=== PATIENT | female | born 2000 ===

== ENCOUNTER 2024-09-06 15:07 | Inpatient (IN) | payer OTHER ==
[2024-09-06 16:12] LABS: MCH 25.0 PG (25.6-32.2); MCHC 32.3 g/dL (32.2-35.5); MCV 77.2 fL (79.4-94.8); RBC 5.05 M/uL (3.93-5.22)
[2024-09-06] MEDS ORDERED: MAGNESIUM HYDROXIDE/AL HYDROX 30 ML CUP PO PRN ×2 (16:15→22:15)
[2024-09-06] MEDS ORDERED: LACTATED RINGER'S 1,000 ML IV SCH (16:15)
[2024-09-06] MEDS ORDERED: LACTATED RINGER'S 1,000 ML IV PRN (16:15)
[2024-09-06] MEDS ORDERED: OXYTOCIN/0.9 % SODIUM CHLORIDE 30 UNITS/500 ML BAG IV SCH (16:15)
[2024-09-06] MEDS ORDERED: CALCIUM CARBONATE 500 MG CHEW PO PRN ×2 (16:15→22:15)
[2024-09-06 16:34] VITALS: BP 120/76
[2024-09-06 16:40] LABS: ABO O; ANTIBODY SCREEN NEGATIVE; RH POSITIVE
[2024-09-06] MEDS ORDERED: BUPIVACAINE HCL 0.25% 10 ML SDV INJ ONE ×2 (17:05→17:52)
[2024-09-06] MEDS ORDERED: fentaNYL citrate 100 MCG/2 ML VIAL ONE ×2 (17:05→17:53)
[2024-09-06] MEDS ORDERED: ROPIVACAINE 0.2% 200 ML BAG ONE (17:07)
[2024-09-06] MEDS ORDERED: ePHEDrine KIT FOR FBC IV ONE (18:33)
[2024-09-06 18:52] LABS: AMPHETAMINES, URINE NEGATIVE (NEGATIVE); BARBITURATES, URINE NEGATIVE (NEGATIVE); BENZODIAZEPINE, URINE NEGATIVE (NEGATIVE); CANNABINOID, URINE NEGATIVE (NEGATIVE); COCAINE, URINE NEGATIVE (NEGATIVE); ECSTASY, URINE NEGATIVE (NEGATIVE); FENTANYL, URINE NEGATIVE (NEGATIVE); METHADONE, URINE NEGATIVE (NEGATIVE); OPIATES, URINE NEGATIVE (NEGATIVE); OXYCODONE, URINE NEGATIVE (NEGATIVE); PHENCYCLIDINE, URINE NEGATIVE (NEGATIVE)
[2024-09-06] MEDS ORDERED: TERBUTALINE SULFATE 1 MG/ML AMP ONE (18:57)
[2024-09-06] MEDS ORDERED: SOD+POT BICARB/CITRIC ACID 2 EA TABLET.EFF ONE (18:57)
[2024-09-06] MEDS ORDERED: LIDOCAINE HCL 1% 30 ML SDV ONE (18:58)
--- NOTE | 2024-09-06 19:23 | PR ---
[facility] [address] [place], [place] [address] Signed Progress Notes IP Datetime Report Generated by CPN: 09/06/2024 19:23 PROGRESS NOTES: [id number] Impression: Normal Progression of Labor; Reassuring Heart Rate Procedures: Sterile Vag Exam Plan: Continue Present Management; Anticipate Vaginal Delivery Informed Consent Obtain: Vaginal Delivery VITAL SIGNS: [id number] Vital Signs: Reviewed; Within Normal Limits EXAM: [id number] Dilatation: 10.0 Effacement: 100 Station: -2 Contractions: q 2 min MEMBRANES: [id number] Comments: Pt seen and examined. Comfortable after epidural. Required 2nd attempt and had some post-epidural hypotension treated w/ ephedrine. Now improved. Pt now 10/100 w/ intact membranes. Would like to labor down. Discussed anticipated course of labor / delivery. All questions answered. FETUS A: [id number] FHR Baseline: 145 Variability: Moderate 6-25bpm Accelerations: 15X15 Decelerations: None FHR Category: Category I Presentation: Vertex Comments on Fetus A: No evidence of metabolic acidosis FETUS B: [id number] Signing Physician: Miranda Coats DO Copies: ~ *Electronically Signed* 09/06/241922 MIRANDA COATS ([place]) DO PATIENT NAME: MARÍA SLATERJIM PROGRESS NOTE DATE OF : 00 PHYSICIAN: MIRANDA COATS DO (JD) RPT #: [id number] REPORT IS CONFIDENTIAL AND NOT TO BE RELEASED WITHOUT AUTHORIZATION
[2024-09-06] MEDS ORDERED: LACTATED RINGER'S 2,000 ML IV ONE (19:45)
[2024-09-06] MEDS ORDERED: LACTATED RINGER'S 500 ML IV PRN (19:45)
[2024-09-06] MEDS ORDERED: ePHEDrine sulfate 5 MG/ML SYRINGE IV PRN (19:45)
[2024-09-06] MEDS ORDERED: MAGNESIUM HYDROXIDE 30 ML UDC PO PRN (22:15)
[2024-09-06] MEDS ORDERED: HYDROCODONE/ACETA 5/325 TAB PO PRN (22:15)
[2024-09-06] MEDS ORDERED: ACETAMINOPHEN 325 MG TAB PO PRN (22:15)
[2024-09-06] MEDS ORDERED: BENZOCAINE 60 ML AEROSOL TOP PRN (22:15)
[2024-09-06] MEDS ORDERED: OXYCODONE/APAP 5/325 TAB PO PRN (22:15)
[2024-09-06] MEDS ORDERED: IBUPROFEN 600 MG TAB PO PRN (22:15)
[2024-09-06] MEDS ORDERED: OXYTOCIN/0.9 % SODIUM CHLORIDE 500 ML IV SCH (22:15)
[2024-09-06] MEDS ORDERED: HYDROCORTISONE ACETATE 25 MG SUPP PR PRN (22:15)
[2024-09-06] MEDS ORDERED: WITCH HAZEL/GLYCERIN 1 EA PAD TOP PRN (22:15)
[2024-09-07 05:04] LABS: MCH 25.4 PG (25.6-32.2); MCHC 31.9 g/dL (32.2-35.5); MCV 79.6 fL (79.4-94.8); RBC 3.78 M/uL (3.93-5.22)
[2024-09-07] MEDS ORDERED: SENNOSIDES/DOCUSATE 1 EA TAB PO SCH (09:00)
--- NOTE | 2024-09-07 12:21 | PR ---
[facility] [address] [facility] [place] [place] [address] Signed PP Progress Notes Datetime Report Generated by CPN: 09/07/2024 12:21 SUBJECTIVE: [id number] Pain: Within Normal Limits Nausea/Vomiting: Denies Flatus: Yes Bowel Movement: No Vital Signs: [id number] Vital Signs: Reviewed; Within Normal Limits Cardiovascular: Normal Respiratory: Normal Abdomen/Uterus: Normal Lochia: Normal Vulva/Perineum: Not Done Breasts: Not Done CVA Tenderness: Normal Extremities: Normal Incision: Not Applicable Progress: Normal Exam Comments: Fundus firm U-2 nontender IMPRESSION/PLAN/PROCEDURES: [id number] Impression: Normal Progression Plan: Discharge Progress Notes: Pt seen and examined. Doing well. Ambulating, voiding, and tolerating full diet. Pain and lochia minimal. well. No fever/chills or other concerns. Strongly desires d/c home tonight. Reviewed d/c instructions and medications. All questions answered. Undecided on plans for pp contraception. Signing Physician: Miranda Coats DO Copies: ~ *Electronically Signed* 09/07/24 1221 MIRANDA COATS ([place]) DO PATIENT NAME: JIM HOOKS PROGRESS NOTE DATE OF : 00 PHYSICIAN: MIRANDA COATS) DO RPT #: [id number] REPORT IS CONFIDENTIAL AND NOT TO BE RELEASED WITHOUT AUTHORIZATION
== END 2024-09-07 22:15 | disposition home or self-care (01) | DRG 805 ==
LOC: FBCO 15:07 → FBC 15:26
PROVIDERS: ADMIT Obstetrics & Gynecology; ATTEND Obstetrics & Gynecology
PROC: 10E0XZZ Delivery of Products of Conception, External Approach (ICD-10-PCS; principal; 2024-09-06)
PROC: 0HQ9XZZ Repair Perineum Skin, External Approach (ICD-10-PCS; 2024-09-06)
PROC: 4A1HXCZ Monitoring of Products of Conception, Cardiac Rate, External Approach (ICD-10-PCS; 2024-09-06)
DX: O48.0 Post-term pregnancy (principal); O99.42 Diseases of the circulatory system complicating childbirth; Z37.0 Single live birth; D62 Acute posthemorrhagic anemia; Z3A.40 40 weeks gestation of pregnancy; O99.03 Anemia complicating the puerperium; Z88.1 Allergy status to other antibiotic agents; I95.2 Hypotension due to drugs; O74.6 Other complications of spinal and epidural anesthesia during labor and delivery; O70.0 First degree perineal laceration during delivery
CPT/HCPCS: 01960; 36415; 80307; 85027; 86850; 86900; 86901; A9270; J2405; J3010; J7121